=== PATIENT | female | born 1985 | race American Indian/Alaskan Native ===

== ENCOUNTER 2016-06-12 05:41 | Emergency (ER) | payer OTHER ==
[2016-06-12] MEDS ORDERED: TORADOL IM ONE (06:07)
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
[2016-06-12 07:13] VITALS: BP 148/92
== END 2016-06-12 07:07 | disposition home or self-care (01) ==
LOC: ED 05:41
DX: M54.2 Cervicalgia (principal); M54.6 Pain in thoracic spine; M25.519 Pain in unspecified shoulder; V89.2XXA Person injured in unspecified motor-vehicle accident, traffic, initial encounter; Y93.9 Activity, unspecified; Y99.9 Unspecified external cause status; Y92.410 Unspecified street and highway as the place of occurrence of the external cause
CPT/HCPCS: 96372; 99282; J1885

== ENCOUNTER 2017-08-18 07:35 | Emergency (ER) | payer OTHER, SELFPAY ==
[2017-08-18 07:49] VITALS: BP 150/85
[2017-08-18 08:43] LABS: Basophils % (Auto) 0.8 % (0.0-1.8); Eosinophils # (Auto) 0.2 K/mm3 (0.0-0.4); Eosinophils % (Auto) 2.7 % (0.0-4.3); Hematocrit 42.8 % (30.3-42.9); Hemoglobin 13.6 gm/dl (10.1-14.3); Lymphocytes # (Auto) 2.1 K/mm3 (1.2-5.4); Lymphocytes % (Auto) 37.2 % (13.4-35.0); Mean Corpuscular HGB Conc 32 % (30-34); Mean Corpuscular Hemoglobin 27 pg (28-32); Mean Corpuscular Volume 85 fl (79-97); Monocytes # (Auto) 0.5 K/mm3 (0.0-0.8); Monocytes % (Auto) 9.6 % (0.0-7.3); Platelet Count 272 K/mm3 (140-440); Red Blood Count 5.01 M/mm3 (3.65-5.03); Red Cell Distribution Width 13.4 % (13.2-15.2)
[2017-08-18 08:49] LABS: Bilirubin,Urine NEG (Negative); Blood,Urine MOD (Negative); Color,Urine Straw (Yellow); Protein,Urine <15 mg/dL mg/dL (Negative); Urobilinogen,Urine < 2.0 mg/dL (<2.0)
[2017-08-18 08:56] LABS: HCG Qualitative,Urine Negative (Negative)
[2017-08-18 09:02] LABS: Alanine Aminotransferase 16 units/L (7-56); Albumin 3.9 g/dL (3.9-5); BUN/Creatinine Ratio 20; Blood Urea Nitrogen 10 mg/dL (7-17); Calcium 9.7 mg/dL (8.4-10.2); Hemolysis Index 5; Lipase 17 units/L (13-60)
[2017-08-18] MEDS ORDERED: NORCO 5/325 PO ONE (10:45)
--- NOTE | 2017-08-18 11:07 | Emergency Department Report ---
ED General Adult HPI - General Chief complaint: Abdominal Pain Stated complaint: ABDOMINAL PAIN Time Seen by Provider: 08/18/17 10:24 Source: patient, EMS Mode of arrival: Wheelchair Limitations: No Limitations - History of Present Illness Initial comments: The patient is status post tubal ligation. She complains of right lower quadrant pain for the past 2 days. It has been intermittent. She denies nausea vomiting diarrhea or fever. She's had no chills. She does not complain of any urinary type symptoms or vaginal discharge. She denies any change in her bowel habits. -: Gradual, days(s) Location: abdomen, right Radiation: non-radiation Quality: other (cramping) Consistency: intermittent Improves with: none Worsens with: none Associated Symptoms: denies other symptoms Treatments Prior to Arrival: none - Related Data Home Medications Medication Instructions Recorded Confirmed Last Taken Cetirizine HCl [ZyrTEC] 10 mg PO HS PRN 04/30/15 04/18/16 05/01/15 Progesterone Micronized 10 mg PO DAILY 04/18/16 04/18/16 2 Days Ago ~04/16/16 Previous Rx's Medication Instructions Recorded Last Taken Type Ibuprofen [Motrin 800 MG tab] 800 mg PO Q8HR PRN #60 tablet 03/20/15 04/29/15 Rx oxyCODONE /ACETAMINOPHEN [Percocet 1 tab PO Q6HR PRN #30 tablet 05/02/15 Unknown Rx 5/325] Ibuprofen [Motrin 800 MG tab] 800 mg PO Q8HR PRN #30 tablet 04/18/16 Unknown Rx oxyCODONE /ACETAMINOPHEN [Percocet 1 tab PO Q6H PRN #20 tablet 04/18/16 Unknown Rx 5/325 mg] Naproxen [Naprosyn TAB] 500 mg PO BID #30 tablet 06/12/16 Unknown Rx methOCARBAMOL [Robaxin TAB] 500 mg PO BID #30 tab 06/12/16 Unknown Rx traMADol [Ultram] 50 mg PO Q6HR PRN #14 tablet 08/18/17 Unknown Rx Allergies Allergy/AdvReac Type Severity Reaction Status Date / Time No Known Allergies Allergy Verified 03/18/13 22:03 ED Review of Systems ROS: Stated complaint: ABDOMINAL PAIN Other details as noted in HPI Constitutional: denies: chills, fever Eyes: denies: eye pain, eye discharge, vision change ENT: denies: ear pain, throat pain Respiratory: denies: cough, shortness of breath, wheezing Cardiovascular: denies: chest pain, palpitations Endocrine: no symptoms reported Gastrointestinal: abdominal pain. denies: nausea, vomiting, diarrhea, constipation, hematemesis, melena, hematochezia Genitourinary: denies: urgency, dysuria, discharge Musculoskeletal: denies: back pain, joint swelling, arthralgia Skin: denies: rash, lesions Neurological: denies: headache, weakness, paresthesias Psychiatric: denies: anxiety, depression Hematological/Lymphatic: denies: easy bleeding, easy bruising ED Past Medical Hx - Past Medical History Previous Medical History?: Yes Hx Hypertension: No Hx Congestive Heart Failure: No Hx Diabetes: (mother and sister) Hx Deep Vein Thrombosis: No Hx Renal Disease: No Hx Sickle Cell Disease: No Hx Seizures: No Hx Asthma: No Hx COPD: No Hx HIV: No Additional medical history: virus - Surgical History Past Surgical History?: Yes Additional Surgical History: tubaligation - Social History Smoking Status: Never Smoker Substance Use Type: Alcohol - Medications Home Medications: Home Medications Medication Instructions Recorded Confirmed Last Taken Type Ibuprofen [Motrin 800 MG tab] 800 mg PO Q8HR PRN #60 tablet 03/20/15 04/18/16 Rx Cetirizine HCl [ZyrTEC] 10 mg PO HS PRN 04/30/15 04/18/16 05/01/15 History oxyCODONE /ACETAMINOPHEN [Percocet 1 tab PO Q6HR PRN #30 tablet 05/02/15 Unknown Rx 5/325] Ibuprofen [Motrin 800 MG tab] 800 mg PO Q8HR PRN #30 tablet 04/18/16 Unknown Rx Progesterone Micronized 10 mg PO DAILY 04/18/16 04/18/16 2 Days Ago History ~04/16/16 oxyCODONE /ACETAMINOPHEN [Percocet 1 tab PO Q6H PRN #20 tablet 04/18/16 Unknown Rx 5/325 mg] Naproxen [Naprosyn TAB] 500 mg PO BID #30 tablet 06/12/16 Unknown Rx methOCARBAMOL [Robaxin TAB] 500 mg PO BID #30 tab 06/12/16 Unknown Rx traMADol [Ultram] 50 mg PO Q6HR PRN #14 tablet 08/18/17 Unknown Rx ED Physical Exam - General Limitations: No Limitations General appearance: alert, in no apparent distress - Head Head exam: Present: atraumatic, normocephalic - Eye Eye exam: Present: normal appearance. Absent: scleral icterus - ENT ENT exam: Present: mucous membranes moist - Neck Neck exam: Present: normal inspection - Respiratory Respiratory exam: Present: normal lung sounds bilaterally. Absent: respiratory distress - Cardiovascular Cardiovascular Exam: Present: regular rate, normal rhythm. Absent: systolic murmur, diastolic murmur, rubs, gallop - GI/Abdominal GI/Abdominal exam: Present: soft, normal bowel sounds. Absent: distended, tenderness, guarding, rebound, rigid, organomegaly, mass, bruit, pulsatile mass , hernia - Extremities Exam Extremities exam: Present: normal inspection - Back Exam Back exam: Present: normal inspection - Neurological Exam Neurological exam: Present: alert, oriented X3, CN II-XII intact. Absent: motor sensory deficit - Psychiatric Psychiatric exam: Present: normal affect, normal mood - Skin Skin exam: Present: warm, dry, intact, normal color. Absent: rash ED Course Vital Signs 08/18/17 08/18/17 07:46 11:02 Temperature 98.3 F Pulse Rate 78 Respiratory 16 18 Rate Blood Pressure 150/85 O2 Sat by Pulse 99 Oximetry - Reevaluation(s) Reevaluation #1: On reexamination patient's abdomen is totally persistently nontender. She is comfortable. She feels ready to go home. She is not complaining of any discomfort. I think she is appropriate for outpatient disposition. Multiple ultrasounds examinations were normal. 08/18/17 13:17 ED Medical Decision Making - Lab Data Result diagrams: 08/18/17 08:12 08/18/17 08:12 Laboratory Results - last 24 hr 08/18/17 08/18/17 08/18/17 08:12 08:12 08:24 WBC 5.6 RBC 5.01 Hgb 13.6 Hct 42.8 MCV 85 MCH 27 L MCHC 32 RDW 13.4 Plt Count 272 Lymph % (Auto) 37.2 H [place] % (Auto) 9.6 H Eos % (Auto) 2.7 Baso % (Auto) 0.8 Lymph # 2.1 [place] # 0.5 Eos # 0.2 Baso # 0.0 Seg Neutrophils % 49.7 Seg Neutrophils # 2.8 Sodium 138 Potassium 4.4 Chloride 99.8 Carbon Dioxide 27 Anion Gap 16 BUN 10 Creatinine 0.5 L Estimated GFR > 60 BUN/Creatinine Ratio 20 Glucose 104 H Calcium 9.7 Total Bilirubin 0.50 AST 14 ALT 16 Alkaline Phosphatase 76 Total Protein 7.5 Albumin 3.9 Albumin/Globulin Ratio 1.1 Lipase 17 Urine Color Straw Urine Turbidity Clear Urine pH 6.0 Ur Specific [place] 1.008 Urine Protein <15 mg/dl Urine Glucose (UA) Neg Urine Ketones Neg Urine Blood Mod Urine Nitrite Neg Urine Bilirubin Neg Urine Urobilinogen < 2.0 Ur Leukocyte Esterase Tr Urine WBC (Auto) 3.0 Urine RBC (Auto) 2.0 U Epithel Cells (Auto) 3.0 Urine HCG, Qual Negative Critical care attestation.: If time is entered above; I have spent that time in minutes in the direct care of this critically ill patient, excluding procedure time. ED Disposition Clinical Impression: Morbid obesity Abdominal pain Qualifiers: Abdominal location: right lower quadrant Qualified Code(s): R10.31 - Right lower quadrant pain Disposition: TO HOME OR SELFCARE Is pt being admited?: No Does the pt Need Aspirin: No Condition: Stable Instructions: Abdominal Pain (ED) Additional Instructions: Return any significant abdominal pain, nausea vomiting fever or change in bowel habits or any acute change. Follow up with primary care provider and Dr. Reynolds. Prescriptions: traMADol [Ultram] 50 mg PO Q6HR PRN #14 tablet PRN Reason: Pain Referrals: JAYLAN REYNOLDS MD [Staff Physician] - 3-5 Days [facility] [Provider Group] - 2-3 Days DIGNA JERRY MD [Staff Physician] - 2-3 Days PRIMARY MD SADIE [Primary Care Provider] - 2-3 Days Time of Disposition: 13:23
--- NOTE | 2017-08-18 12:35 | Ultrasound Report ---
Renal ultrasound: Right abdominal pain and hematuria. The right renal length is 11.2 cm. The left renal length is 10.3 cm. Both kidneys are echogenically unremarkable. No evidence of renal calculus and no hydronephrosis. No renal mass. Imaging of the urinary bladder is normal. Impression: No pathology identified.
--- NOTE | 2017-08-18 12:38 | Ultrasound Report ---
Pelvic ultrasound: Right lower quadrant pain. Endovaginal and transabdominal imaging demonstrates an anteverted uterus measuring 5.7 x 6.8 x 12.1 cm. The myometrium is homogeneous. The endometrial thickness is 9 mm and echogenically unremarkable. The right ovary measures 3.8 cm and the left ovary measures 2.9 cm. There are scattered follicles in the right ovary. The left ovary is unremarkable. No free fluid. Impressions: No significant findings.
== END 2017-08-18 14:00 | disposition home or self-care (01) ==
LOC: ED 07:35
DX: R10.31 Right lower quadrant pain (principal); E66.01 Morbid (severe) obesity due to excess calories
CPT/HCPCS: 36415; 76770; 76830; 76856; 80053; 81001; 81025; 83690; 85025